=== PATIENT | female | born 2000 | race Caucasian/White ===

== ENCOUNTER 2022-09-11 15:01 | Emergency (ER) | payer OTHER, SELFPAY ==
--- NOTE | 2022-09-11 15:06 | ED.SKABFB ---
HPI - Skin/Abscess/Foreign Bdy General Chief complaint: Skin/Abscess/Foreign Body Stated complaint: Lt Side Breast Irritation Time Seen by Provider: 09/11/22 15:06 Source: patient Mode of arrival: ambulatory Limitations: no limitations History of Present Illness HPI narrative: Brandi is a 21-year-old female patient presenting to the clinic today with complaints of open wound that is possibly infected to her left breast. She reports that on August 07 she had a mole removed by the anchorman that was precancerous. She reports that the wound had opened slightly on the bottom and had been draining some brownish discharge. She is concerned that this may be infected she denies any discomfort or fever but has had some chills. Related Data Home Medications Medication Instructions Recorded Confirmed etonogestrel 68 mg subdermal See Rx Instructions .Route .COMPLEX 09/11/22 09/11/22 implant (Nexplanon) Allergies Allergy/AdvReac Type Severity Reaction Status Date / Time morphine Allergy Unknown DIFFICULTY Verified 09/11/22 15:17 BREATHING, CONFUSION guaifenesin AdvReac Severe VIOLENT, Verified 09/11/22 15:17 BEHAVIORS pseudoephedrine AdvReac Severe VIOLENT, Verified 09/11/22 15:17 BEHAVIORS DEXTROMETHORPHAN HBR AdvReac Severe VIOLENT, Uncoded 09/11/22 15:17 BEHAVIORS Review of Systems Review of Systems: Pertinent positives per HPI. Patient denies any fever, chills, rash, headache, visual changes, dizziness, cough, runny nose, sore throat, shortness of breath, chest pain, palpitations, nausea, vomiting, diarrhea, constipation, abdominal pain, or any urinary issues. PMFSH Comments At the time of my signature, I reviewed and agree with the nursing past medical, surgical, social, and family history. There is no relevant family history pertinent to the patient complaint. Exam Narrative: General: Well-developed, well nourished, in no apparent distress Head: Normocephalic, atraumatic. Cardio: Regular rate and rhythm, s1 and s2 normal, no murmur appreciated. Resp: Clear to auscultation bilaterally, no rhonchi, rales, wheezing or rubs. Integumentary: [place], warm, and dry, intact without lesion, small open area to the left upper lateral breast with some brownish discharge coming from it. Culture was obtained and sent to lab. Area was cleansed with normal saline and triple antibiotic ointment was applied. No induration or abscess palpable. Mild tenderness to palpation Course Course Emergency Course: Portions of this record may have been created with voice recognition software. Level of Care: Express Care Visit Vital Signs Vital signs: Vital Signs Temperature 36.9 C 09/11/22 15:12 Pulse Rate 84 09/11/22 15:12 Respiratory Rate 18 09/11/22 15:12 Blood Pressure 127/64 09/11/22 15:12 Pulse Oximetry 100 09/11/22 15:12 Oxygen Delivery Room Air 09/11/22 15:12 Temperature 36.9 C 09/11/22 15:12 Pulse Rate 84 09/11/22 15:12 Respiratory Rate 18 09/11/22 15:12 Blood Pressure 127/64 09/11/22 15:12 Pulse Oximetry 100 09/11/22 15:12 Oxygen Delivery Room Air 09/11/22 15:12 Vital signs reviewed MDM - Skin/Abscess/Foreign Bdy MDM Narrative Medical decision making narrative: At the time of visit patient is resting comfortably on the exam table. I suspect patient has an acute wound infection. Will place patient on some doxycycline and culture was sent to the lab. Supportive measures were discussed with the patient she voiced understanding of discharge instructions and agrees to treatment plan. Differential Diagnosis Differential diagnosis: Likely abscess of skin or subcutaneous tissue and cellulitis Discharge Plan Discharge Clinical Impression: Wound infection Patient Disposition: Home, Self-Care Condition: Stable Instructions: Antibiotic Form, Wound Infection (ED) Additional Instructions: Keep wound clean and dry-wash with soap and water
[2022-09-11 15:12] VITALS: BP 127/64; PULSE 84; RESP 18; TEMP 36.9; O2SAT 100
== END 2022-09-11 15:35 | disposition home or self-care (01) ==
PROVIDERS: Emergency Provider Nurse Practitioner Family
DX: S21.002A Unspecified open wound of left breast, initial encounter (principal); L08.9 Local infection of the skin and subcutaneous tissue, unspecified; X58.XXXA Exposure to other specified factors, initial encounter
CPT/HCPCS: 87070; 87075; 87147; 87181; 87186; 87205; 99213; G0463

== ENCOUNTER 2022-10-20 10:05 | Emergency (ER) | payer OTHER, SELFPAY ==
--- NOTE | ~2022-10-20 | XR_ITS ---
EXAMINATION: XR abdomen obstructive series DATE: 10/20/2022 10:47 INDICATION: Right abdominal pain. TECHNIQUE: Upright and supine views of the abdomen on 3 radiographs were obtained. COMPARISON: None. FINDINGS: There are no dilated loops of bowel. There is a small volume of stool in the colon. No free intraperitoneal gas. IMPRESSION: 1. Nonobstructive bowel gas pattern. Reviewed, dictated and finalized at location A. [facility] ANTHROPOLOGIST
--- NOTE | 2022-10-20 10:07 | ED.ABDPAIN ---
HPI - Abdominal Pain General Chief Complaint: Abdominal Pain Stated Complaint: Rt Side Pain Time Seen by Provider: 10/20/22 10:07 Source: patient Mode of arrival: ambulatory Limitations: no limitations History of Present Illness HPI narrative: Maria Isabel is a 22-year-old female patient presenting to clinic today with complaints of right-sided abdominal pain since Wednesday. She reports she has had sharp pain over the mid abdomen that is now over the right mid/right upper quadrant. States that she had some nausea and rates her pain an 8/10 when the pain comes. Reports that the pain is intermittent and comes and goes. States the pain does get worse right after eating. She also reports some burning with urination that began yesterday. Last bowel movement was today and she has been having diarrhea for the past 2 days. There is no blood in her stool. She does have a history of IBS. She denies any fever, chills, or URI symptoms. She has a Nexplanon as form of control and has not had a period since getting the Nexplanon placed 7 years ago. She denies having any pain currently. Related Data Home Medications Medication Instructions Recorded Confirmed etonogestrel 68 mg subdermal See Rx Instructions .Route .COMPLEX 09/11/22 10/20/22 implant (Nexplanon) Allergies Allergy/AdvReac Type Severity Reaction Status Date / Time guaifenesin AdvReac Severe VIOLENT, Verified 10/20/22 10:06 BEHAVIORS morphine AdvReac Severe DIFFICULTY Verified 10/20/22 10:06 BREATHING, CONFUSION pseudoephedrine AdvReac Severe VIOLENT, Verified 10/20/22 10:06 BEHAVIORS DEXTROMETHORPHAN HBR AdvReac Severe VIOLENT, Uncoded 10/20/22 10:06 BEHAVIORS Review of Systems Review of Systems: Pertinent positives per HPI. Patient denies any fever, chills, rash, headache, visual changes, dizziness, cough, runny nose, sore throat, shortness of breath, chest pain, palpitations,vomiting, constipation, or any urinary issues. PMFSH Comments At the time of my signature, I reviewed and agree with the nursing past medical, surgical, social, and family history. There is no relevant family history pertinent to the patient complaint. Exam Narrative: General: Well-developed, obese, in no apparent distress. Head: Normocephalic, atraumatic. Cardio: Regular rate and rhythm, s1 and s2 normal, no murmur appreciated. Resp: Clear to auscultation bilaterally, no rhonchi, rales, wheezing or rubs. Abdomen: Soft, pliable, bowel sounds present in all quadrants, mild right upper quadrant and right mid quadrant tenderness to palpation, no organomegly, no CVAT tenderness. Course Course Emergency Course: Portions of this record may have been created with voice recognition software. Level of Care: Express Care Visit Vital Signs Vital signs: Vital Signs Temperature 36.3 C L 10/20/22 10:13 Pulse Rate 87 10/20/22 10:13 Respiratory Rate 18 10/20/22 10:13 Blood Pressure 131/68 10/20/22 10:13 Pulse Oximetry 100 10/20/22 10:13 Oxygen Delivery Room Air 10/20/22 10:13 Temperature 36.3 C L 10/20/22 10:13 Pulse Rate 87 10/20/22 10:13 Respiratory Rate 18 10/20/22 10:13 Blood Pressure 131/68 10/20/22 10:13 Pulse Oximetry 100 10/20/22 10:13 Oxygen Delivery Room Air 10/20/22 10:13 Vital signs reviewed MDM - Abdominal Pain MDM Narrative Medical decision making narrative: At the time of visit the patient is resting comfortably on the exam table. Urinalysis, UA Preg, and abdominal x-rays were performed. UA shows trace of blood otherwise negative for any sign of infection. Urine test was negative. X-ray shows no sign of obstruction, impaction, calculi, or mass. Patient is not currently in any pain at this time. Cannot rule out pancreatitis, gallbladder disease, kidney stone, or IBS as the cause. Recommend follow-up with her PCP this week for further evaluation/labs/diagnostics. Supportive measures were discuss
[2022-10-20 10:13] VITALS: BP 131/68; PULSE 87; RESP 18; TEMP 36.3; O2SAT 100
== END 2022-10-20 11:11 | disposition home or self-care (01) ==
PROVIDERS: Emergency Provider Nurse Practitioner Family; PCP Internal Medicine
DX: R10.11 Right upper quadrant pain (principal); R31.29 Other microscopic hematuria
CPT/HCPCS: 74019; 81003; 81025; 99213; G0463

== ENCOUNTER 2023-01-30 10:07 | Emergency (ER) | payer OTHER, SELFPAY ==
--- NOTE | 2023-01-30 10:07 | ED.URI ---
HPI - URI/Sore Throat General Chief Complaint: Upper Respiratory Infection Stated Complaint: Sore Throat Time Seen by Provider: 01/30/23 10:07 Source: patient Mode of arrival: ambulatory Limitations: no limitations History of Present Illness HPI Narrative: Brandi is a 22-year-old female patient presenting to the clinic today with complaints of sore throat x3 days. She reports no fever or chills. No runny nose, cough, or nasal congestion. No known exposure to anyone with COVID, flu, or struck MD elicited complaint: sore throat and nasal congestion Related Data Home Medications Medication Instructions Recorded Confirmed etonogestrel 68 mg subdermal See Rx Instructions .Route .COMPLEX 09/11/22 01/30/23 implant (Nexplanon) Allergies Allergy/AdvReac Type Severity Reaction Status Date / Time guaifenesin AdvReac Severe VIOLENT, Verified 01/30/23 10:17 BEHAVIORS morphine AdvReac Severe DIFFICULTY Verified 01/30/23 10:17 BREATHING, CONFUSION pseudoephedrine AdvReac Severe VIOLENT, Verified 01/30/23 10:17 BEHAVIORS DEXTROMETHORPHAN HBR AdvReac Severe VIOLENT, Uncoded 01/30/23 10:17 BEHAVIORS Review of Systems Review of Systems: Pertinent positives per HPI. Patient denies any fever, chills, rash, headache, visual changes, dizziness, cough, shortness of breath, chest pain, palpitations, nausea, vomiting, diarrhea, constipation, abdominal pain, or any urinary issues. PMFSH Comments At the time of my signature, I reviewed and agree with the nursing past medical, surgical, social, and family history. There is no relevant family history pertinent to the patient complaint. Exam Narrative: General: Well-developed, well nourished, in no apparent distress Head: Normocephalic, atraumatic Eyes: Pupils equally round and reactive to light bilaterally, EOM intact, sclera and conjunctive clear, no discharge, lids normal Ears: TMs intact and clear, ear canals clear, no drainage, grossly hearing normal. Nose: Nares patent, no discharge, no inflammation, no sinus tenderness. Mouth: Oral pharynx without lesions or masses, good dentition, MMM. Oropharynx red with mild tonsillar enlargement Neck: Supple, trachea midline, enlargement of anterior cervical nodes, no thyroid masses or goiter palpable. Cardio: Regular rate and rhythm, s1 and s2 normal, no murmur appreciated. Resp: Clear to auscultation bilaterally, no rhonchi, rales, wheezing or rubs Course Course Emergency Course: Portions of this record may have been created with voice recognition software. Level of Care: Express Care Visit Vital Signs Vital signs: Vital Signs Temperature 37.0 C 01/30/23 10:17 Pulse Rate 112 H 01/30/23 10:17 Respiratory Rate 20 01/30/23 10:17 Blood Pressure 115/81 01/30/23 10:17 Pulse Oximetry 99 01/30/23 10:17 Oxygen Delivery Room Air 01/30/23 10:17 Temperature 37.0 C 01/30/23 10:17 Pulse Rate 112 H 01/30/23 10:17 Respiratory Rate 20 01/30/23 10:17 Blood Pressure 115/81 01/30/23 10:17 Pulse Oximetry 99 01/30/23 10:17 Oxygen Delivery Room Air 01/30/23 10:17 Vital signs reviewed MDM - URI/Sore Throat MDM Narrative Medical decision making narrative: At the time of visit patient is resting comfortably on the exam table. Strep screen was obtained and was positive in the clinic today. Prescription for amoxicillin was sent to the pharmacy and supportive measures were discussed with the patient she voiced understanding of discharge instructions and agrees to treatment plan. Differential Diagnosis Differential diagnosis: Likely upper respiratory infection, sinusitis, viral infection, bronchitis, influenza, pharyngitis and other (COVID) Lab Data Labs: Strep Screen Positive Group A Strep *(Reference Range: Negative)* Discharge Plan Discharge Clinical Impression: Acute streptococcal pharyngitis Patient Dispositi
[2023-01-30 10:17] VITALS: BP 115/81; PULSE 112; RESP 20; TEMP 37; O2SAT 99
== END 2023-01-30 10:34 | disposition home or self-care (01) ==
LOC: EXPTROY 10:09
PROVIDERS: Emergency Provider Nurse Practitioner Family; PCP Internal Medicine
DX: J02.0 Streptococcal pharyngitis (principal)
CPT/HCPCS: 87880; 99213; G0463

== ENCOUNTER 2023-08-08 14:16 | Emergency (ER) | payer OTHER, SELFPAY ==
[2023-08-08 14:47] VITALS: BP 138/84; PULSE 100; RESP 18; TEMP 36.4; O2SAT 100
--- NOTE | 2023-08-08 15:43 | ED.URI ---
HPI - URI/Sore Throat General Chief Complaint: Ear Stated Complaint: cough,rt eye irritation Time Seen by Provider: 08/08/23 15:32 Source: patient and RN notes reviewed Mode of arrival: ambulatory Limitations: no limitations History of Present Illness HPI Narrative: Patient presents today with a has 6 day history of productive cough, nasal congestion, sore throat, hoarseness. Reports right eye redness and drainage since yesterday. 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 Related Data Home Medications Medication Instructions Recorded Confirmed etonogestrel 68 mg subdermal See Rx Instructions .Route .COMPLEX 09/11/22 01/30/23 implant (Nexplanon) Allergies Allergy/AdvReac Type Severity Reaction Status Date / Time guaifenesin AdvReac Severe VIOLENT, Verified 05/07/23 08:25 BEHAVIORS morphine AdvReac Severe DIFFICULTY Verified 05/07/23 08:25 BREATHING, CONFUSION pseudoephedrine AdvReac Severe VIOLENT, Verified 05/07/23 08:25 BEHAVIORS DEXTROMETHORPHAN HBR AdvReac Severe VIOLENT, Uncoded 05/07/23 08:25 BEHAVIORS Review of Systems Review of Systems: CONSTITUTIONAL: Denies body aches, fever, chills, or sweats. EYES: Denies visual changes. + right eye redness and discharge ENT: Denies rhinorrhea, or otalgia.+ congestion, sore throat, hoarseness CARDIOVASCULAR: Denies chest pain, palpitations, or edema. RESPIRATORY: Denies dyspnea.+ cough GASTROINTESTINAL: Denies abdominal pain, nausea, vomiting, or diarrhea. GENITOURINARY: Denies dysuria or hematuria. SKIN: Denies rash, itching, or wounds. MUSCULOSKELETAL: Denies back pain, joint pain, or myalgia. NEUROLOGIC: Denies headache, numbness, tingling, or weakness. PSYCH: Denies depression or anxiety. [facility] Past Medical History Medical History IBS (irritable bowel syndrome) Surgical History Surgical History History of placement of ear tubes History of removal of skin mole History of wisdom tooth extraction Family History Family History Father No problems noted. Mother No problems noted. Grandparent Diabetes mellitus Sibling No problems noted. Sibling No problems noted. Social History Social History Smoking status: Unknown if ever smoked Alcohol intake: never Substance use: never Substance use type: does not use Lack of Transportation: No Lack of Food: Never True Current Housing: I Have Housing Concerned About Future Housing: No Difficulty Paying Gas/Electric Bills: No Difficulty Paying for Meds: No Currently Unemployed: No Education: Bachelor's Degree Difficulty w/ Childcare or Family Care: No Living arrangements: with family Occupation/Education: occupation Additional occupation/education comments: teacher Gender identity (if verbalized by the patient): Female Sexual Orientation (if Verbalized by the Patient): Straight or Heterosexual Comments At time of signature, I have reviewed and agree with nursing past medical, surgical, social and family history unless otherwise noted. Please see nursing chart for further information. There is no relevant family history pertinent to the presenting complaint Exam Narrative: GENERAL: Well-appearing, well-nourished, and in no acute distress. HEAD: Normocephalic, atraumatic. EYES: EOMI. PERRL. Left eye normal. Right eye with injected conjunctivae and crusting drainage in the medial canthus. Lids and lashes normal. ENT: Mucous membranes pink and moist. Nares congested. No rhinorrhea. TMs normal bilaterally. Throat erythematous without exudate. Uvula midline. Hoarse voice. NECK: Normal AROM. Supple. No lymphadenopathy. CHEST: No re
== END 2023-08-08 15:55 | disposition home or self-care (01) ==
PROVIDERS: Emergency Provider Nurse Practitioner; PCP Internal Medicine
DX: J06.9 Acute upper respiratory infection, unspecified (principal); H10.31 Unspecified acute conjunctivitis, right eye; Z20.822 Contact with and (suspected) exposure to COVID-19
CPT/HCPCS: 87081; 87426; 87804; 87880; 99213; C9803; G0463

== ENCOUNTER 2023-12-27 15:07 | Emergency (ER) | payer OTHER, SELFPAY ==
--- NOTE | 2023-12-27 15:09 | ED.SKABFB ---
HPI - Skin/Abscess/Foreign Bdy General Chief complaint: Skin/Abscess/Foreign Body Stated complaint: Arm Irritation/Rash Time Seen by Provider: 12/27/23 15:09 Source: patient Mode of arrival: ambulatory Limitations: no limitations History of Present Illness HPI narrative: Brandi is a 23-year-old female patient presenting to the clinic today with complaints of a rash on bilateral wrist. She reports she thought initially was ringworm and has been putting antifungal cream and soap on the area with mild relief. Reports that over the last 1-2 days she noticed that now she has a bunch dots all over her skin. States that the area is itching Related Data Home Medications Medication Instructions Recorded Confirmed etonogestrel 68 mg subdermal See Rx Instructions .Route .COMPLEX 09/11/22 12/27/23 implant (Nexplanon) Allergies Allergy/AdvReac Type Severity Reaction Status Date / Time guaifenesin AdvReac Severe VIOLENT, Verified 12/27/23 15:27 BEHAVIORS morphine AdvReac Severe DIFFICULTY Verified 12/27/23 15:27 BREATHING, CONFUSION pseudoephedrine AdvReac Severe VIOLENT, Verified 12/27/23 15:27 BEHAVIORS DEXTROMETHORPHAN HBR AdvReac Severe VIOLENT, Uncoded 12/27/23 15:27 BEHAVIORS Review of Systems Review of Systems: Pertinent positives per HPI. Patient denies any fever, chills, headache, visual changes, dizziness, cough, shortness of breath, chest pain, palpitations, nausea, vomiting, diarrhea, constipation, abdominal pain, or any urinary issues. PMFSH Past Medical History Medical History IBS (irritable bowel syndrome) Surgical History Surgical History History of placement of ear tubes History of removal of skin mole History of wisdom tooth extraction Family History Family History Father No problems noted. Mother No problems noted. Grandparent Diabetes mellitus Sibling No problems noted. Sibling No problems noted. Social History Social History Smoking status: Unknown if ever smoked Alcohol intake: never Substance use: never Substance use type: does not use Lack of Transportation: No Lack of Food: Never True Current Housing: I Have Housing Concerned About Future Housing: No Difficulty Paying Gas/Electric Bills: No Difficulty Paying for Meds: No Currently Unemployed: No Education: Bachelor's Degree Difficulty w/ Childcare or Family Care: No Living arrangements: with family Occupation/Education: occupation Additional occupation/education comments: teacher Gender identity (if verbalized by the patient): Female Sexual Orientation (if Verbalized by the Patient): Straight or Heterosexual Comments At the time of my signature, I reviewed and agree with the nursing past medical, surgical, social, and family history. There is no relevant family history pertinent to the patient complaint. Exam Narrative: General: Well-developed, well nourished, in no apparent distress Head: Normocephalic, atraumatic. Cardio: Regular rate and rhythm, s1 and s2 normal, no murmur appreciated. Resp: Clear to auscultation bilaterally, no rhonchi, rales, wheezing or rubs. Integumentary: [place], warm, and dry, red, raised, itchy rash to bilateral volar wrist Course Course Emergency Course: Portions of this record may have been created with voice recognition software. Level of Care: Express Care Visit Vital Signs Vital signs: Vital signs reviewed MDM - Skin/Abscess/Foreign Bdy MDM Narrative Medical decision making narrative: At the time of visit patient is resting comfortably on the exam table. Patient appears to be nontoxic. Plan: I suspect patient has dermatitis. Prescription for triamcinolone cr
[2023-12-27 15:15] VITALS: BP 137/28; PULSE 87; RESP 16; TEMP 36.1; O2SAT 100
== END 2023-12-27 15:29 | disposition home or self-care (01) ==
PROVIDERS: Emergency Provider Nurse Practitioner Family; PCP Internal Medicine
DX: L30.9 Dermatitis, unspecified (principal)
CPT/HCPCS: 99213; G0463